=== PATIENT | female | born 1980 | race African-American/Black ===

== ENCOUNTER 2017-05-09 07:46 | Day surgery (SDC) | payer OTHER, SELFPAY ==
[~2017-05-09 07:46] MED LIST: ACET500; BUSP5; CEPH500 PO; CYCL10 PO; ENOX60I; HYDACE5 PO; HYDHCL25 PO; HYDPAM25 PO; IBUP600; MINO100; MULVITMINE; Percocet 5-3251 EACH PO; SULTRIDS PO; TRAZ100; WARF2 PO
== END 2017-05-09 23:09 | disposition home or self-care (01) ==
LOC: MOI MAM 07:46 → MOI US 08:00 → MOI MAM 08:00
PROC: 0HBT3ZX Excision of Right Breast, Percutaneous Approach, Diagnostic (ICD-10-PCS; principal; 2017-05-09)
DX: N64.1 Fat necrosis of breast (principal); N61.0 Mastitis without abscess
CPT/HCPCS: 19083; 77065; 88305; 88341; 88342; A4648

== ENCOUNTER → 2017-06-30 | Outpatient (CLI) | payer OTHER, SELFPAY | END | disposition home or self-care (01) | LOC: LAB 11:16 → LAB SHORT 11:16 | PROVIDERS: Obstetrics & Gynecology | DX: Z01.419 Encounter for gynecological examination (general) (routine) without abnormal findings (principal) | CPT/HCPCS: 87624; G0123 ==

== ENCOUNTER 2017-07-04 07:06 | Day surgery (SDC) | payer OTHER, SELFPAY | END 2017-07-04 22:59 | disposition home or self-care (01) | LOC: MOI MAM 07:06 | PROC: 0HBU3ZX Excision of Left Breast, Percutaneous Approach, Diagnostic (ICD-10-PCS; principal; 2017-07-04) | DX: N64.1 Fat necrosis of breast (principal); N61.0 Mastitis without abscess | CPT/HCPCS: 19083; 76830; 77065; 88305; 88341; 88342; A4648 ==

== ENCOUNTER → 2018-06-16 | Outpatient (CLI) | payer OTHER ==
[2018-06-16 13:27] LABS: Alanine Aminotransfer (ALT/SGP 32 U/L (12-78); Albumin, Blood 3.9 g/dL (3.4-5.0); Albumin/Globulin Ratio 1.3 (0.8-1.8); Alk Phos 64 U/L (50-136); Anion Gap 9 mmol/L (6-16); Aspartate Aminotrans (AST/SGOT 17 U/L (12-37); Bilirubin, Direct <0.1 mg/dL (0.0-0.3); Bilirubin, Indirect Unable to Calculate mg/dL (0.1-0.7); Bilirubin, Total 0.2 mg/dL (0.1-1.0); Blood Urea Nitrogen 8 mg/dL (8-24); Bun/Creatinine Ratio 13.5 (12.0-20.0); CO2, Blood 25 mmol/L (21-32); Calcium, Blood 8.6 mg/dL (8.5-10.1); Chloride, Blood 108 mmol/L (98-108); Creatinine, Blood 0.59 mg/dL (0.40-1.00); Globulin, Blood 2.9 g/dL (2.2-4.0); Glomerular Filtration Rate >60 (60-); Glucose, Blood 106 mg/dL (70-99); Sodium, Blood 142 mmol/L (136-145); Total Protein, Blood 6.8 g/dL (6.4-8.2)
== END | disposition home or self-care (01) ==
LOC: LAB 12:59 → LAB SHORT 12:59
PROVIDERS: Internal Medicine Hematology & Oncology
DX: Z51.81 Encounter for therapeutic drug level monitoring (principal); C81.10 Nodular sclerosis Hodgkin lymphoma, unspecified site; D70.1 Agranulocytosis secondary to cancer chemotherapy; T45.1X5A Adverse effect of antineoplastic and immunosuppressive drugs, initial encounter; Z79.899 Other long term (current) drug therapy
CPT/HCPCS: 80053; 82248

== ENCOUNTER → 2018-07-07 | Outpatient (CLI) | payer OTHER ==
[2018-07-07 18:42] LABS: Alanine Aminotransfer (ALT/SGP 21 U/L (12-78); Albumin/Globulin Ratio 1.4 (0.8-1.8); Alk Phos 73 U/L (50-136); Anion Gap 6 mmol/L (6-16); Aspartate Aminotrans (AST/SGOT 15 U/L (12-37); Bilirubin, Total 0.3 mg/dL (0.1-1.0); Blood Urea Nitrogen 9 mg/dL (8-24); Bun/Creatinine Ratio 14.6 (12.0-20.0); CO2, Blood 28 mmol/L (21-32); Chloride, Blood 107 mmol/L (98-108); Creatinine, Blood 0.62 mg/dL (0.40-1.00); Globulin, Blood 2.9 g/dL (2.2-4.0); Glomerular Filtration Rate >60 (60-); Glucose, Blood 99 mg/dL (70-99); Lactate Dehydrogenase (Ld),Bld 265 U/L (100-240); Potassium, Blood 3.9 mmol/L (3.5-5.5); Sodium, Blood 141 mmol/L (136-145); Total Protein, Blood 6.9 g/dL (6.4-8.2)
== END | disposition home or self-care (01) ==
LOC: LAB 18:08 → LAB SHORT 18:08
PROVIDERS: Internal Medicine Hematology & Oncology
DX: C81.10 Nodular sclerosis Hodgkin lymphoma, unspecified site (principal)
CPT/HCPCS: 80053; 83615

== ENCOUNTER → 2019-09-21 | Outpatient (CLI) | payer OTHER | END | disposition home or self-care (01) | LOC: LAB SHORT 13:56 → LAB 13:56 | DX: C81.10 Nodular sclerosis Hodgkin lymphoma, unspecified site (principal) | CPT/HCPCS: 83615 ==

== ENCOUNTER → 2021-02-06 | Outpatient (CLI) | payer OTHER ==
[2021-02-06 13:46] LABS: BASOPHILS ABSOLUTE AUTO 0.05 K/mm3 (0.00-0.23); BASOPHILS PERCENT AUTO 1 % (0-2); EOSINOPHILS ABSOLUTE AUTO 0.19 K/mm3 (0.00-0.68); EOSINOPHILS PERCENT AUTO 5 % (0-6); Hematocrit 40.4 % (33.0-51.0); Hemoglobin 13.4 g/dL (11.5-16.0); IMMATURE GRAN PERCENT AUTO 0 % (0-1); LYMPHOCYTES ABSOLUTE AUTO 1.97 K/mm3 (0.84-5.20); LYMPHOCYTES PERCENT AUTO 50 % (21-46); MONOCYTES PERCENT AUTO 8 % (4-13); Mean Corpuscular HGB 29.1 pg (26.0-34.0); Mean Corpuscular HGB Conc 33.2 g/dL (31.5-36.5); Mean Corpuscular Volume 88 fL (80-100); Mean Platelet Volume 9.2 fL (9.1-12.4); NEUTROPHILS ABSOLUTE AUTO 1.47 K/mm3 (1.96-9.15); NEUTROPHILS PERCENT AUTO 37 % (41-73); Platelet Count 379 K/mm3 (150-400); RDW Coefficient Variation 13.3 % (11.7-14.2); RDW Standard Deviation 43.1 fL (35.1-46.3); White Blood Cell Count 3.98 K/mm3 (4.00-11.30)
[2021-02-06 14:25] LABS: Magnesium, Blood 2.2 mg/dL (1.6-2.4); Very Low Density Lipoprot Chol 14 mg/dL (6-32)
[2021-02-06 14:35] LABS: Alanine Aminotransfer (ALT/SGP 26 U/L (12-78); Albumin/Globulin Ratio 1.4 (0.8-1.8); Alk Phos 84 U/L (50-136); Anion Gap 6 mmol/L (6-16); Aspartate Aminotrans (AST/SGOT 16 U/L (12-37); Bilirubin, Total 0.5 mg/dL (0.1-1.0); Blood Urea Nitrogen 9 mg/dL (8-24); Bun/Creatinine Ratio 14.9 (12.0-20.0); CHOL/HDL RATIO 2.6; CO2, Blood 26 mmol/L (21-32); Calcium, Blood 9.4 mg/dL (8.5-10.1); Chloride, Blood 110 mmol/L (98-108); Cholesterol 156 mg/dL (50-200); Globulin, Blood 2.9 g/dL (2.2-4.0); Glomerular Filtration Rate >60 (60-); Glucose, Blood 120 mg/dL (70-99); HDL Cholesterol 59 mg/dL (>39); LDL/HDL RATIO 1.4; Low Density Lipoprotein Chol 83 mg/dL (0-110); Potassium, Blood 3.9 mmol/L (3.5-5.5); Sodium, Blood 142 mmol/L (136-145); Total Protein, Blood 6.9 g/dL (6.4-8.2); Triglycerides 70 mg/dL (30-160)
== END | disposition home or self-care (01) ==
LOC: LAB SHORT 12:35
PROVIDERS: Physician Assistant
DX: Z00.00 Encounter for general adult medical examination without abnormal findings (principal); Z13.6 Encounter for screening for cardiovascular disorders; R53.83 Other fatigue; R25.2 Cramp and spasm
CPT/HCPCS: 80053; 80061; 83735; 84443; 85025

== ENCOUNTER 2021-12-22 04:29 | Emergency (ER) | payer OTHER ==
[~2021-12-22] VITALS: Ht 175.3 cm; Wt 86.2 kg
[2021-12-22] MEDS ORDERED: Adderall 5mg tab5 MG PO (04:58)
[2021-12-22 05:18] LABS: BASOPHILS ABSOLUTE AUTO 0.04 K/mm3 (0.00-0.23); BASOPHILS PERCENT AUTO 1 % (0-2); EOSINOPHILS ABSOLUTE AUTO 0.06 K/mm3 (0.00-0.68); EOSINOPHILS PERCENT AUTO 1 % (0-6); Hematocrit 39.6 % (33.0-51.0); Hemoglobin 13.1 g/dL (11.5-16.0); IMMATURE GRAN ABSOLUTE AUTO 0.02 K/mm3 (0.00-0.10); IMMATURE GRAN PERCENT AUTO 0 % (0-1); LYMPHOCYTES ABSOLUTE AUTO 1.17 K/mm3 (0.84-5.20); LYMPHOCYTES PERCENT AUTO 19 % (21-46); MONOCYTES ABSOLUTE AUTO 0.41 K/mm3 (0.16-1.47); MONOCYTES PERCENT AUTO 7 % (4-13); Mean Corpuscular HGB 29.8 pg (26.0-34.0); Mean Corpuscular HGB Conc 33.1 g/dL (31.5-36.5); Mean Corpuscular Volume 90 fL (80-100); Mean Platelet Volume 8.8 fL (9.1-12.4); NEUTROPHILS ABSOLUTE AUTO 4.39 K/mm3 (1.96-9.15); NEUTROPHILS PERCENT AUTO 72 % (41-73); Platelet Count 250 K/mm3 (150-400); RDW Coefficient Variation 13.2 % (11.7-14.2); RDW Standard Deviation 44.2 fL (35.1-46.3); White Blood Cell Count 6.09 K/mm3 (4.00-11.30)
[2021-12-22 05:47] LABS: Influenza A, PCR NEGATIVE (NEGATIVE); Influenza B, PCR NEGATIVE (NEGATIVE); SARS-Cov-2 (COVID-19) PCR, MMC NEGATIVE (NEGATIVE)
[2021-12-22 05:51] LABS: Albumin, Blood 3.6 g/dL (3.4-5.0); Albumin/Globulin Ratio 1.2 (0.8-1.8); Bilirubin, Total 0.3 mg/dL (0.1-1.0); Bun/Creatinine Ratio 14.1 (12.0-20.0); Calcium, Blood 8.5 mg/dL (8.5-10.1); Creatinine, Blood 0.64 mg/dL (0.40-1.00); Globulin, Blood 3.1 g/dL (2.2-4.0); Potassium, Blood 3.6 mmol/L (3.5-5.5); Total Protein, Blood 6.7 g/dL (6.4-8.2)
[2021-12-22 05:52] LABS: Resp Syncytial Virus, PCR POSITIVE (NEGATIVE)
== END 2021-12-22 09:00 | disposition home or self-care (01) ==
LOC: ER 04:29
PROVIDERS: Emergency Medicine
DX: R07.9 Chest pain, unspecified (principal); R06.02 Shortness of breath; B97.4 Respiratory syncytial virus as the cause of diseases classified elsewhere; F17.200 Nicotine dependence, unspecified, uncomplicated; Z88.8 Allergy status to other drugs, medicaments and biological substances; Z79.899 Other long term (current) drug therapy; Z20.822 Contact with and (suspected) exposure to COVID-19
CPT/HCPCS: 0241U; 36415; 71045; 71260; 80053; 84484; 85025; 85379; 93005; 93010; 94640; 94664; J1885; Q9967